=== PATIENT | female | born 1945 | race Caucasian/White ===

== ENCOUNTER 2018-12-01 11:17 | Inpatient (IN) | payer MEDICARE, MEDICAID ==
[~2018-12-01] VITALS: Ht 157.5 cm; Wt 82.8 kg
[2018-12-01] MEDS ORDERED: SODIUM CHLORIDE 0.9% 1,000 ML IV ONE (12:00)
[2018-12-01] MEDS ORDERED: ONDANSETRON HCL 4MG/2ML INJ IV STA (12:00)
[2018-12-01] MEDS ORDERED: FAMOTIDINE 20MG/2ML VIAL IV STA (12:00)
[2018-12-01] MEDS ORDERED: MORPHINE SULFATE 4 MG/ML CPJ (NOT FOR IM USE) IV STA (12:00)
[2018-12-01 12:16] LABS: EOSINOPHILS % 2.4 % (0.0-5.0); HEMATOCRIT. 43.3 % (36.0-48.0); HEMOGLOBIN. 14.5 g/dL (12.0-16.0); LYMPHOCYTES % 24.6 % (20.0-50.0); MEAN CORPUSCULAR HEMOGLOBIN 31.9 pg (28.0-32.0); MEAN CORPUSCULAR VOLUME 95.5 fL (81.0-99.0); MEAN PLATELET VOLUME 9.4 fl (7.4-10.4); MONOCYTES % 6.5 % (2.0-8.0); NEUTROPHILS % 65.5 % (40.0-76.0); PLATELET 212 x1000/uL (130-400); RED BLOOD CELL COUNT 4.54 mill/uL (4.2-5.4); RED CELL DISTRIBUTION WIDTH 13.7 % (11.6-14.6)
[2018-12-01 12:21] LABS: CHLORIDE 107 mEq/L (98-107)
[2018-12-01 12:23] LABS: INR 1.1
[2018-12-01 12:37] LABS: CLARITY URINE CLEAR (CLEAR); COLOR URINE YELLOW (YELLOW); KETONES URINE NEGATIVE (NEGATIVE); LEUKOCYTE ESTERASE URINE NEGATIVE (NEGATIVE); NITRITE URINE NEGATIVE (NEGATIVE); OCCULT BLOOD URINE NEGATIVE (NEGATIVE); PH URINE 6.5 (4.5-8.0); PROTEIN URINE NEGATIVE (NEGATIVE); SPECIFIC GRAVITY URINE 1.022 (1.005-1.030); UROBILINOGEN URINE 0.2 E.U./dL (0.2-1.0)
[2018-12-01] MEDS ORDERED: IOHEXOL-300 100 ML BOTTLE ONE (14:07)
[2018-12-01] MEDS ORDERED: IOHEXOL-350 100 ML BOTTLE ONE (14:11)
[2018-12-01] MEDS ORDERED: LORAZEPAM 1MG TABLET PO NR (16:00)
[2018-12-01] MEDS ORDERED: MORPHINE SULFATE 4 MG/ML CPJ (NOT FOR IM USE) IV ONE (17:00)
[2018-12-01] MEDS: SODIUM CHLORIDE 0.45% 1,000 ML IV SCH (20:29)
[2018-12-01] MEDS ORDERED: NA PHOS,M-B/NA PHOS,DI-BA ENEMA 118ML PR PRN (20:30)
[2018-12-01] MEDS ORDERED: CLONIDINE 0.1MG TABLET PO PRN (20:30)
[2018-12-01] MEDS ORDERED: MAGNESIUM/ALUMINUM HYDROXIDE/SIMETHICONE 30ML UDC PO PRN (20:30)
[2018-12-01] MEDS ORDERED: ACETAMINOPHEN 650MG/20.3ML UDC GT PRN (20:30)
[2018-12-01] MEDS ORDERED: GUAIFENESIN 200MG/10ML SUGAR FREE UDC PO PRN (20:30)
[2018-12-01] MEDS ORDERED: IPRATROPIUM/ALBUTEROL 0.5-3(2.5)MG/3ML NEB INH PRN (20:30)
[2018-12-01] MEDS ORDERED: DOCUSATE SODIUM 100MG CAPSULE PO PRN (20:30)
[2018-12-01] MEDS ORDERED: DIPHENHYDRAMINE 50MG/ML VIAL IV PRN (20:30)
[2018-12-01] MEDS ORDERED: ONDANSETRON HCL 4MG/2ML INJ IV PRN (20:30)
[2018-12-01] MEDS ORDERED: ACETAMINOPHEN 650MG SUPP PR PRN (20:30)
[2018-12-01] MEDS ORDERED: DEXTROSE 50% WATER 50ML SYRINGE IV PRN (20:45)
[2018-12-01 20:57] LABS: *AMPHETAMINES SCREEN URINE NEGATIVE (NEGATIVE); *BARBITURATES SCREEN URINE NEGATIVE (NEGATIVE)
[2018-12-01 20:58] LABS: *BENZODIAZEPINES SCREEN URINE NEGATIVE (NEGATIVE); *COCAINE SCREEN URINE NEGATIVE (NEGATIVE); CANNABINOID URINE SCREEN NEGATIVE (NEGATIVE); METHADONE URINE SCREEN NEGATIVE (NEGATIVE); OPIATES URINE SCREEN NEGATIVE (NEGATIVE); PHENCYCLIDINE URINE SCREEN NEGATIVE (NEGATIVE)
[2018-12-01 21:00] VITALS: BP_SYST 144; BP_SYST 147; BP_DIAS 77
[2018-12-01] MEDS: INSULIN LISPRO 100 UNITS/ML SUBCUT SCH (21:30)
[2018-12-01] MEDS: BLOOD SUGAR DIAGNOSTIC STRIP TEST SCH (22:09)
[2018-12-01] MEDS: SODIUM CHLORIDE 0.9% INJ 3ML FLUSH IVF SCH (22:10)
[2018-12-01] MEDS: LEVOFLOXACIN 500MG PREMIX 100 ML IV SCH (22:27)
[2018-12-01] MEDS: METRONIDAZOLE 500 MG PREMIX 100 ML IV SCH (22:27)
[2018-12-01] MEDS: ENOXAPARIN 30MG/0.3ML SYR SUBCUT SCH (22:45)
[2018-12-01] MEDS: MORPHINE SULFATE 4 MG/ML CPJ (NOT FOR IM USE) IV PRN (22:46)
[2018-12-02] VITALS: BP 143/73
[2018-12-02] MEDS: ZOLPIDEM TARTRATE 5MG TABLET PO PRN ×3 (00:46→21:06)
[2018-12-02 04:00] VITALS: BP 142/85
[2018-12-02] MEDS: SODIUM CHLORIDE 0.9% INJ 3ML FLUSH IVF SCH ×2 (05:42→13:56)
[2018-12-02] MEDS: BLOOD SUGAR DIAGNOSTIC STRIP TEST SCH ×4 (05:46→21:00)
[2018-12-02] MEDS: METRONIDAZOLE 500 MG PREMIX 100 ML IV SCH ×2 (05:46→13:55)
[2018-12-02 07:15] LABS: BASOPHILS % 1.4 % (0.0-2.0); EOSINOPHILS % 3.8 % (0.0-5.0); HEMATOCRIT. 40.1 % (36.0-48.0); HEMOGLOBIN. 13.6 g/dL (12.0-16.0); LYMPHOCYTES % 30.9 % (20.0-50.0); MEAN CORPUSCULAR HEMOGLOBIN 32.3 pg (28.0-32.0); MEAN CORPUSCULAR VOLUME 95.1 fL (81.0-99.0); MEAN PLATELET VOLUME 9.5 fl (7.4-10.4); NEUTROPHILS % 54.9 % (40.0-76.0); PLATELET 206 x1000/uL (130-400); RED BLOOD CELL COUNT 4.22 mill/uL (4.2-5.4); RED CELL DISTRIBUTION WIDTH 13.8 % (11.6-14.6)
[2018-12-02 07:47] LABS: CHLORIDE 104 mEq/L (98-107)
[2018-12-02] MEDS: INSULIN LISPRO 100 UNITS/ML SUBCUT SCH ×4 (07:50→21:00)
[2018-12-02 08:00] VITALS: BP 136/74
[2018-12-02 08:01] LABS: LDL CHOLESTEROL 88 mg/dL (5-100)
[2018-12-02 08:03] LABS: HDL CHOLESTEROL 38 mg/dL (40-59)
[2018-12-02] MEDS: SODIUM CHLORIDE 0.45% 1,000 ML IV SCH (08:59)
[2018-12-02] MEDS: ENOXAPARIN 30MG/0.3ML SYR SUBCUT SCH (09:46)
[2018-12-02] MEDS: HYDROCODONE/ACETAMINOPHEN 5/325MG TABLET PO PRN ×2 (09:47→18:22)
[2018-12-02 12:00] VITALS: BP 149/75
[2018-12-02] MEDS: MORPHINE SULFATE 4 MG/ML CPJ (NOT FOR IM USE) IV PRN (13:55)
[2018-12-02 16:00] VITALS: BP 144/93
[2018-12-02] MEDS ORDERED: DOCU-138 PO (18:47)
[2018-12-02] MEDS ORDERED: LACT10SO6 PO (18:48)
[2018-12-02] MEDS ORDERED: FENO43CA5 PO (18:49)
[2018-12-02] MEDS ORDERED: SIMV20TA2 PO (18:49)
[2018-12-02] MEDS ORDERED: ASA5EC PO (18:50)
[2018-12-02] MEDS ORDERED: CHOL100046 PO (18:51)
[2018-12-02] MEDS ORDERED: NALO25TA PO (18:52)
[2018-12-02] MEDS ORDERED: OLOP2.5D EACHEYE (18:52)
[2018-12-02] MEDS ORDERED: LINA5TAB PO (18:53)
[2018-12-02] MEDS ORDERED: LEVO100T9 PO (18:54)
[2018-12-02] MEDS ORDERED: POTA10CA42 PO (18:55)
[2018-12-02] MEDS ORDERED: FURO-152 PO (18:56)
[2018-12-02] MEDS ORDERED: GLUCO8 PO (18:57)
[2018-12-02] MEDS ORDERED: VALS160T28 PO (18:57)
[2018-12-02] MEDS ORDERED: METO-396 PO (18:58)
[2018-12-02] MEDS ORDERED: DULO60CA44 PO (18:59)
[2018-12-02] MEDS ORDERED: TEMA15CA PO (18:59)
[2018-12-02] MEDS ORDERED: LORA-250 PO (19:00)
[2018-12-02 19:53] VITALS: BP 133/53
[2018-12-02] MEDS: HYDROCODONE/ACETAMINOPHEN 10/325MG TABLET PO PRN (21:06)
[2018-12-02] MEDS: ACETAMINOPHEN 325MG TABLET PO PRN (21:06)
[2018-12-02] MEDS ORDERED: LACTULOSE 20G/30ML UDC PO SCH (22:00)
[2018-12-03] VITALS (7 sets, daily range): BP systolic 123–163; BP diastolic 64–92
[2018-12-03] MEDS: LEVOFLOXACIN 500MG PREMIX 100 ML IV SCH (04:18)
[2018-12-03] MEDS: METRONIDAZOLE 500 MG PREMIX 100 ML IV SCH ×4 (04:19→21:54)
[2018-12-03] MEDS: SODIUM CHLORIDE 0.45% 1,000 ML IV SCH ×3 (04:20→22:08)
[2018-12-03] MEDS: SODIUM CHLORIDE 0.9% INJ 3ML FLUSH IVF SCH ×4 (04:21→22:05)
[2018-12-03] MEDS: HYDROCODONE/ACETAMINOPHEN 10/325MG TABLET PO PRN ×4 (04:22→21:53)
[2018-12-03] MEDS: BLOOD SUGAR DIAGNOSTIC STRIP TEST SCH ×4 (06:02→21:54)
[2018-12-03] MEDS: INSULIN LISPRO 100 UNITS/ML SUBCUT SCH ×4 (06:02→21:00)
[2018-12-03] MEDS: ENOXAPARIN 40MG/0.4ML SYR SUBCUT SCH ×2 (09:11→21:53)
[2018-12-03] MEDS: HYDROCODONE/ACETAMINOPHEN 5/325MG TABLET PO PRN (09:12)
[2018-12-03] MEDS: ACETAMINOPHEN 325MG TABLET PO PRN (11:54)
[2018-12-03] MEDS ORDERED: SUMATRIPTAN SUCCINATE 6MG/0.5ML VIAL SUBCUT SCH (13:00)
[2018-12-03 17:19] LABS: EOSINOPHILS % 3.4 % (0.0-5.0); HEMATOCRIT. 42.6 % (36.0-48.0); HEMOGLOBIN. 14.4 g/dL (12.0-16.0); LYMPHOCYTES % 30.1 % (20.0-50.0); MEAN CORPUSCULAR HEMOGLOBIN 32.4 pg (28.0-32.0); MEAN CORPUSCULAR VOLUME 95.5 fL (81.0-99.0); NEUTROPHILS % 58.5 % (40.0-76.0); PLATELET 205 x1000/uL (130-400); RED BLOOD CELL COUNT 4.46 mill/uL (4.2-5.4); RED CELL DISTRIBUTION WIDTH 13.6 % (11.6-14.6)
[2018-12-03 17:40] LABS: CHLORIDE 105 mEq/L (98-107)
[2018-12-03] MEDS: ZOLPIDEM TARTRATE 5MG TABLET PO PRN (21:52)
[2018-12-04] MEDS ORDERED: LEVOFLOXACIN 500MG PREMIX 100 ML IV SCH (02:00)
[2018-12-04 03:58] VITALS: BP 181/83
[2018-12-04] MEDS: BLOOD SUGAR DIAGNOSTIC STRIP TEST SCH ×2 (06:07→12:14)
[2018-12-04] MEDS: SODIUM CHLORIDE 0.9% INJ 3ML FLUSH IVF SCH (06:07)
[2018-12-04] MEDS: METRONIDAZOLE 500 MG PREMIX 100 ML IV SCH ×2 (06:08→13:14)
[2018-12-04] MEDS: HYDROCODONE/ACETAMINOPHEN 10/325MG TABLET PO PRN ×2 (07:58→12:17)
[2018-12-04 08:00] VITALS: BP 167/88
[2018-12-04] MEDS ORDERED: METR500T MT (08:00)
[2018-12-04] MEDS ORDERED: LEVO500T2 MT (08:00)
[2018-12-04] MEDS: INSULIN LISPRO 100 UNITS/ML SUBCUT SCH ×2 (08:16→13:19)
[2018-12-04] MEDS: ACETAMINOPHEN 325MG TABLET PO PRN (10:08)
[2018-12-04 12:00] VITALS: BP 148/67
[2018-12-04 12:29] VITALS: BP 148/67
== END 2018-12-04 14:40 | DRG 392 ==
LOC: ER 11:17 → 6WST 15:48 → EDBEDREQ 15:52 → ENRESERV 19:49 → 6WST 12-03 21:55
PROVIDERS: ADMIT Family Medicine; ATTEND Family Medicine
DX: K52.9 Noninfective gastroenteritis and colitis, unspecified (principal); J44.9 Chronic obstructive pulmonary disease, unspecified; E03.9 Hypothyroidism, unspecified; E11.9 Type 2 diabetes mellitus without complications; E66.9 Obesity, unspecified; M54.9 Dorsalgia, unspecified; E78.00 Pure hypercholesterolemia, unspecified; E78.5 Hyperlipidemia, unspecified; F41.9 Anxiety disorder, unspecified; G43.909 Migraine, unspecified, not intractable, without status migrainosus; G89.29 Other chronic pain; I10 Essential (primary) hypertension; M19.90 Unspecified osteoarthritis, unspecified site; Z68.33 Body mass index [BMI] 33.0-33.9, adult
CPT/HCPCS: 36415; 71045; 74177; 76705; 80061; 80305; 82962; 83605; 84484; 93005; 96374; 96375; 99285; J1200; J1650; J1815; J1956; J2270; J2405; J3030; J3490; J7030; Q9967

== ENCOUNTER 2019-12-02 20:33 | Inpatient (IN) | payer MEDICARE, MEDICAID ==
[~2019-12-02] VITALS: Ht 160 cm; Wt 87.7 kg
[~2019-12-02 20:33] MED LIST: ASPI325T85 PO; CHOL100046 PO; DOCU-138 PO; DULO60CA44 PO; FENO43CA8 PO; FURO-152 PO; GLUCO8 PO; LACT10SO6 PO; LEVO100T9 PO; LEVO500T2 MT; LINA5TAB PO; LORA-250 PO; METO-396 PO; METR500T MT; NALO25TA PO; OLOP2.5D EACHEYE; POTA10CA42 PO; SIMV20TA2 PO; TEMA15CA PO; VALS160T28 PO
[2019-12-02] MEDS ORDERED: SODIUM CHLORIDE 0.9% 1,000 ML IV ONE (21:01)
[2019-12-02] MEDS ORDERED: ACETAMINOPHEN 325MG TABLET PO STA (21:01)
[2019-12-02 21:51] LABS: CLARITY URINE CLEAR (CLEAR); COLOR URINE YELLOW (YELLOW); KETONES URINE NEGATIVE (NEGATIVE); LEUKOCYTE ESTERASE URINE NEGATIVE (NEGATIVE); NITRITE URINE NEGATIVE (NEGATIVE); OCCULT BLOOD URINE 2+ (NEGATIVE); PROTEIN URINE 2+ (NEGATIVE); SPECIFIC GRAVITY URINE 1.017 (1.005-1.030)
[2019-12-02 21:53] LABS: BASOPHILS % 0.7 % (0.0-2.0); HEMOGLOBIN. 15.2 g/dL (12.0-16.0); LYMPHOCYTES % 26.2 % (20.0-50.0); MEAN CORPUSCULAR HEMOGLOBIN 29.9 pg (28.0-32.0); MEAN CORPUSCULAR VOLUME 88.5 fL (81.0-99.0); MONOCYTES % 9.5 % (2.0-8.0); NEUTROPHILS % 63.6 % (40.0-76.0); PLATELET 139 x1000/uL (130-400); RED BLOOD CELL COUNT 5.09 mill/uL (4.2-5.4); RED CELL DISTRIBUTION WIDTH 14.5 % (11.6-14.6)
[2019-12-02 22:02] LABS: INR 1.1; PROTHROMBIN TIME 11.6 sec (9.6-11.0)
[2019-12-02 22:10] LABS: CHLORIDE 103 mEq/L (98-107)
[2019-12-02] MEDS ORDERED: ALBUTEROL 6.7GM HFA INHALER ORI ONE (22:45)
[2019-12-02] MEDS ORDERED: DEXAMETHASONE 4MG/ML 1ML VIAL IV ONE (22:45)
[2019-12-02] MEDS ORDERED: AZITHROMYCIN 500 MG in DEXT 5% WATER 250 ML IV SCH (22:45)
[2019-12-02] MEDS ORDERED: KCL 20MEQ/100ML PREMIX 100 ML IV ONE (23:15)
[2019-12-02] MEDS ORDERED: POTASSIUM CHLORIDE 20MEQ/PACKET PO ONE (23:15)
[2019-12-03] VITALS (7 sets, daily range): BP systolic 112–154; BP diastolic 62–78
[2019-12-03] MEDS ORDERED: ONDANSETRON HCL 4MG/2ML INJ IV PRN (04:00)
[2019-12-03] MEDS ORDERED: DEXTROSE 50% WATER 50ML SYRINGE IV PRN (04:00)
[2019-12-03] MEDS ORDERED: CLONIDINE 0.1MG TABLET PO PRN (04:00)
[2019-12-03] MEDS: ACETAMINOPHEN 325MG TABLET PO PRN ×2 (04:38→13:17)
[2019-12-03] MEDS: METRONIDAZOLE 500MG TABLET PO SCH ×3 (06:30→22:31)
[2019-12-03] MEDS: BLOOD SUGAR DIAGNOSTIC STRIP TEST SCH ×4 (06:35→21:13)
[2019-12-03 08:37] LABS: CHLORIDE 108 mEq/L (98-107)
[2019-12-03 08:38] LABS: BASOPHILS % 0.1 % (0.0-2.0); HEMATOCRIT. 42.4 % (36.0-48.0); HEMOGLOBIN. 14.2 g/dL (12.0-16.0); LYMPHOCYTES % 17.7 % (20.0-50.0); MEAN CORPUSCULAR HEMOGLOBIN 29.9 pg (28.0-32.0); MEAN CORPUSCULAR VOLUME 88.9 fL (81.0-99.0); MEAN PLATELET VOLUME 10.5 fl (7.4-10.4); MONOCYTES % 3.7 % (2.0-8.0); NEUTROPHILS % 78.5 % (40.0-76.0); PLATELET 127 x1000/uL (130-400); RED BLOOD CELL COUNT 4.77 mill/uL (4.2-5.4); RED CELL DISTRIBUTION WIDTH 15.1 % (11.6-14.6)
[2019-12-03] MEDS: LEVOFLOXACIN 500MG TABLET PO SCH (08:50)
[2019-12-03] MEDS: ERGOCALCIFEROL 50000UNITS CAPSULE PO SCH (08:50)
[2019-12-03] MEDS: DOCUSATE SODIUM 100MG CAPSULE PO SCH ×2 (08:50→16:16)
[2019-12-03] MEDS: ASPIRIN 81MG TABLET PO SCH (08:51)
[2019-12-03] MEDS: INSULIN LISPRO 100 UNITS/ML SUBCUT SCH ×4 (08:58→21:00)
[2019-12-03] MEDS ORDERED: LACTULOSE 20G/30ML UDC PO SCH (09:00)
[2019-12-03] MEDS ORDERED: MEDICATION NOT ON FORMULARY EA (Lactulose 30 GM) PO SCH (09:00)
[2019-12-03] MEDS: ENOXAPARIN 40MG/0.4ML SYR SUBCUT SCH (09:00)
[2019-12-03] MEDS: HYDROCODONE/ACETAMINOPHEN 5/325MG TABLET PO PRN (12:25)
[2019-12-03] MEDS ORDERED: POTASSIUM CHLORIDE 20MEQ TABLET SR PO SCH (14:45)
[2019-12-03] MEDS: ASCORBIC ACID 500 MG TABLET PO SCH (17:15)
[2019-12-03] MEDS: HYDROCODONE/ACETAMINOPHEN 10/325MG TABLET PO PRN (17:28)
[2019-12-03] MEDS: ZINC SULFATE 220 MG ( 50 ) CAPSULE PO SCH (17:29)
[2019-12-03] MEDS: METFORMIN HCL 850MG TABLET PO SCH (17:30)
[2019-12-03] MEDS: HYDROXYCHLOROQUINE SULFATE 200MG TABLET PO SCH (17:31)
[2019-12-03] MEDS: THIAMINE HCL 100MG TABLET PO SCH (17:31)
[2019-12-03] MEDS: LINAGLIPTIN 5MG TABLET PO SCH (17:32)
[2019-12-03] MEDS: LACTULOSE 20G/30ML UDC PO SCH (20:55)
[2019-12-03] MEDS: METOPROLOL TARTRATE 25MG TABLET PO SCH (20:56)
[2019-12-03] MEDS: FENOFIBRATE NANOCRYSTALLIZED 48MG TABLET PO SCH (20:57)
[2019-12-03] MEDS ORDERED: MEDICATION NOT ON FORMULARY EA (Simvastatin (Zocor) 20 MG) PO SCH (21:00)
[2019-12-03] MEDS: ATORVASTATIN CALCIUM 10MG TABLET PO SCH (22:33)
[2019-12-04] VITALS: BP 125/64
[2019-12-04] MEDS: AZITHROMYCIN 500 MG in DEXT 5% WATER 250 ML IV SCH ×2 (00:05→22:59)
[2019-12-04] MEDS: ACETAMINOPHEN 325MG TABLET PO PRN ×2 (00:05→13:06)
[2019-12-04] MEDS: HYDROCODONE/ACETAMINOPHEN 10/325MG TABLET PO PRN ×2 (01:51→23:59)
[2019-12-04 04:00] VITALS: BP 117/61
[2019-12-04] MEDS: METRONIDAZOLE 500MG TABLET PO SCH ×3 (06:18→21:19)
[2019-12-04] MEDS: LEVOTHYROXINE SODIUM 100MCG TABLET PO SCH (07:40)
[2019-12-04] MEDS: BLOOD SUGAR DIAGNOSTIC STRIP TEST SCH ×4 (07:40→21:19)
[2019-12-04 08:00] VITALS: BP 141/72
[2019-12-04] MEDS: METFORMIN HCL 850MG TABLET PO SCH ×2 (08:10→18:04)
[2019-12-04] MEDS: INSULIN LISPRO 100 UNITS/ML SUBCUT SCH ×4 (08:10→21:31)
[2019-12-04 08:57] LABS: BG BASE EXCESS -3.9 mmol/L (-2.0-2.0); BG CARBOXYHEMOGLOBIN 0.3 % (0.5-1.5); BG DEOXYHEMOGLOBIN 8.4 % (0.0-5.0); BG HCO3 ACT 17.7 mmol/L (22.0-26.0); BG METHEMOGLOBIN 0.3 % (0.0-1.5); BG OXYGEN SATURATION 91.5 % (92.0-98.5); BG PCO2 24.6 mmHg (35.0-45.0); BG PH 7.474 (7.350-7.450); BG PO2 56.9 mmHg (75.0-100.0); BG SAMPLE SITE RIGHT RADIAL; BG TOTAL HEMOGLOBIN 15.1 g/dL (12.0-18.0); BG VENT MODE MASK - NRB
[2019-12-04] MEDS: FUROSEMIDE 20MG TABLET PO SCH (09:00)
[2019-12-04] MEDS: ASCORBIC ACID 500 MG TABLET PO SCH ×2 (09:00→17:15)
[2019-12-04] MEDS: LEVOFLOXACIN 500MG TABLET PO SCH (09:00)
[2019-12-04] MEDS: DULOXETINE HCL 60MG DR CAPSULE PO SCH (09:00)
[2019-12-04] MEDS: ASPIRIN 81MG TABLET PO SCH (09:00)
[2019-12-04] MEDS: THIAMINE HCL 100MG TABLET PO SCH ×2 (09:00→17:16)
[2019-12-04] MEDS: ZINC SULFATE 220 MG ( 50 ) CAPSULE PO SCH (09:00)
[2019-12-04] MEDS: DOCUSATE SODIUM 100MG CAPSULE PO SCH ×2 (09:00→17:16)
[2019-12-04] MEDS: METOPROLOL TARTRATE 25MG TABLET PO SCH ×2 (09:00→21:19)
[2019-12-04] MEDS: HYDROXYCHLOROQUINE SULFATE 200MG TABLET PO SCH ×2 (09:00→17:16)
[2019-12-04] MEDS: LINAGLIPTIN 5MG TABLET PO SCH (09:00)
[2019-12-04 10:52] LABS: BG BASE EXCESS -2.4 mmol/L (-2.0-2.0); BG CARBOXYHEMOGLOBIN 0.3 % (0.5-1.5); BG FRACTION INSPIRED OXYGEN 100; BG METHEMOGLOBIN 0.5 % (0.0-1.5); BG OXYGEN SATURATION 92.9 % (92.0-98.5); BG OXYHEMOGLOBIN 92.2 % (94.0-97.0); BG PCO2 25.5 mmHg (35.0-45.0); BG PH 7.491 (7.350-7.450); BG PO2 60.3 mmHg (75.0-100.0); BG SAMPLE SITE RIGHT RADIAL; BG TOTAL HEMOGLOBIN 15.3 g/dL (12.0-18.0); BG VENT MODE MASK - NRB
[2019-12-04] MEDS: METHYLPREDNISOLONE SOD SUCC 40 MG/ML VIAL IV SCH ×2 (11:00→17:18)
[2019-12-04 12:00] VITALS: BP 152/75
[2019-12-04] MEDS: ENOXAPARIN 40MG/0.4ML SYR SUBCUT SCH (13:07)
[2019-12-04 14:09] LABS: BG BASE EXCESS -2.8 mmol/L (-2.0-2.0); BG CARBOXYHEMOGLOBIN 0.3 % (0.5-1.5); BG DEOXYHEMOGLOBIN 5.6 % (0.0-5.0); BG FRACTION INSPIRED OXYGEN 100; BG METHEMOGLOBIN 0.3 % (0.0-1.5); BG OXYGEN SATURATION 94.4 % (92.0-98.5); BG OXYHEMOGLOBIN 93.8 % (94.0-97.0); BG PCO2 26.3 mmHg (35.0-45.0); BG PH 7.476 (7.350-7.450); BG PO2 67.7 mmHg (75.0-100.0); BG SAMPLE SITE RIGHT RADIAL; BG TOTAL HEMOGLOBIN 15.4 g/dL (12.0-18.0); BG VENT MODE MASK - NRB
[2019-12-04 16:00] VITALS: BP 113/59
[2019-12-04 16:04] LABS: BASOPHILS % 0.2 % (0.0-2.0); HEMATOCRIT. 43.8 % (36.0-48.0); HEMOGLOBIN. 14.8 g/dL (12.0-16.0); LYMPHOCYTES % 8.8 % (20.0-50.0); MEAN CORPUSCULAR HEMOGLOBIN 29.7 pg (28.0-32.0); MEAN CORPUSCULAR VOLUME 87.9 fL (81.0-99.0); MEAN PLATELET VOLUME 10.5 fl (7.4-10.4); MONOCYTES % 4.8 % (2.0-8.0); NEUTROPHILS % 86.2 % (40.0-76.0); PLATELET 181 x1000/uL (130-400); RED BLOOD CELL COUNT 4.98 mill/uL (4.2-5.4); RED CELL DISTRIBUTION WIDTH 14.9 % (11.6-14.6)
[2019-12-04 16:05] LABS: CHLORIDE 108 mEq/L (98-107)
[2019-12-04] MEDS ORDERED: POTASSIUM CHLORIDE 20MEQ/PACKET PO NR (17:15)
[2019-12-04 20:00] VITALS: BP 129/81
[2019-12-04] MEDS: LACTULOSE 20G/30ML UDC PO SCH (21:18)
[2019-12-04] MEDS: FENOFIBRATE NANOCRYSTALLIZED 48MG TABLET PO SCH (21:18)
[2019-12-04] MEDS: ATORVASTATIN CALCIUM 10MG TABLET PO SCH (21:18)
[2019-12-05] VITALS: BP 128/74
[2019-12-05 04:00] VITALS: BP 118/58
[2019-12-05] MEDS: METRONIDAZOLE 500MG TABLET PO SCH ×3 (05:37→21:34)
[2019-12-05] MEDS: BLOOD SUGAR DIAGNOSTIC STRIP TEST SCH ×4 (07:29→21:31)
[2019-12-05] MEDS: LEVOFLOXACIN 500MG TABLET PO SCH (09:00)
[2019-12-05] MEDS: DOCUSATE SODIUM 100MG CAPSULE PO SCH ×2 (09:00→16:58)
[2019-12-05 09:25] LABS: BASOPHILS % 0.1 % (0.0-2.0); HEMOGLOBIN. 14.9 g/dL (12.0-16.0); LYMPHOCYTES % 10.9 % (20.0-50.0); MEAN CORPUSCULAR VOLUME 88.7 fL (81.0-99.0); MEAN PLATELET VOLUME 10.4 fl (7.4-10.4); MONOCYTES % 7.5 % (2.0-8.0); NEUTROPHILS % 81.5 % (40.0-76.0); PLATELET 196 x1000/uL (130-400); RED BLOOD CELL COUNT 4.97 mill/uL (4.2-5.4); RED CELL DISTRIBUTION WIDTH 15.2 % (11.6-14.6)
[2019-12-05] MEDS: ASCORBIC ACID 500 MG TABLET PO SCH ×2 (09:32→16:57)
[2019-12-05] MEDS: METOPROLOL TARTRATE 25MG TABLET PO SCH ×2 (09:37→21:34)
[2019-12-05] MEDS: LINAGLIPTIN 5MG TABLET PO SCH (09:38)
[2019-12-05] MEDS: HYDROCODONE/ACETAMINOPHEN 10/325MG TABLET PO PRN (09:38)
[2019-12-05] MEDS: METHYLPREDNISOLONE SOD SUCC 40 MG/ML VIAL IV SCH ×2 (09:39→16:58)
[2019-12-05] MEDS: METFORMIN HCL 850MG TABLET PO SCH ×2 (09:39→16:57)
[2019-12-05] MEDS: LEVOTHYROXINE SODIUM 100MCG TABLET PO SCH (09:39)
[2019-12-05] MEDS: FUROSEMIDE 20MG TABLET PO SCH (09:39)
[2019-12-05] MEDS: ZINC SULFATE 220 MG ( 50 ) CAPSULE PO SCH (09:39)
[2019-12-05] MEDS: THIAMINE HCL 100MG TABLET PO SCH ×2 (09:39→16:57)
[2019-12-05] MEDS: HYDROXYCHLOROQUINE SULFATE 200MG TABLET PO SCH ×2 (09:39→16:57)
[2019-12-05] MEDS: DULOXETINE HCL 60MG DR CAPSULE PO SCH (09:40)
[2019-12-05] MEDS: ASPIRIN 81MG TABLET PO SCH (09:40)
[2019-12-05] MEDS: ENOXAPARIN 40MG/0.4ML SYR SUBCUT SCH (09:41)
[2019-12-05 09:43] LABS: CHLORIDE 111 mEq/L (98-107)
[2019-12-05] MEDS: INSULIN LISPRO 100 UNITS/ML SUBCUT SCH ×4 (09:43→21:31)
[2019-12-05] MEDS ORDERED: BENZONATATE 100MG CAPSULE PO PRN (10:45)
[2019-12-05 10:56] LABS: BG BASE EXCESS -1.9 mmol/L (-2.0-2.0); BG CARBOXYHEMOGLOBIN 0.3 % (0.5-1.5); BG DEOXYHEMOGLOBIN 12.5 % (0.0-5.0); BG FRACTION INSPIRED OXYGEN 100; BG HCO3 ACT 21.2 mmol/L (22.0-26.0); BG METHEMOGLOBIN 0.4 % (0.0-1.5); BG OXYGEN SATURATION 87.4 % (92.0-98.5); BG OXYHEMOGLOBIN 86.8 % (94.0-97.0); BG PCO2 31.5 mmHg (35.0-45.0); BG PH 7.445 (7.350-7.450); BG PO2 51.4 mmHg (75.0-100.0); BG SAMPLE SITE LEFT RADIAL; BG TOTAL HEMOGLOBIN 14.9 g/dL (12.0-18.0); BG VENT MODE MASK - NRB
[2019-12-05] MEDS ORDERED: CEFTRIAXONE 1 G PREMIX 50 ML IV SCH (11:15)
[2019-12-05 12:00] VITALS: BP 122/68
[2019-12-05] MEDS: ACETAMINOPHEN 325MG TABLET PO PRN ×2 (14:27→20:29)
[2019-12-05] MEDS: DEXT 5%/0.45% NACL 1000ML 1,000 ML IV SCH (14:28)
[2019-12-05] MEDS: CEFTRIAXONE 1,000 MG in DEXTROSE 5% WATER 50 ML IV SCH (14:29)
[2019-12-05 16:00] VITALS: BP 92/56
[2019-12-05] MEDS: HYDROCODONE/ACETAMINOPHEN 5/325MG TABLET PO PRN ×2 (16:53→21:49)
[2019-12-05 20:00] VITALS: BP 110/56
[2019-12-05] MEDS: LACTULOSE 20G/30ML UDC PO SCH (21:33)
[2019-12-05] MEDS: FENOFIBRATE NANOCRYSTALLIZED 48MG TABLET PO SCH (21:34)
[2019-12-05] MEDS: ATORVASTATIN CALCIUM 10MG TABLET PO SCH (21:34)
[2019-12-05] MEDS: AZITHROMYCIN 500 MG in DEXT 5% WATER 250 ML IV SCH (21:36)
[2019-12-06] VITALS: BP 98/58
[2019-12-06] MEDS: HYDROCODONE/ACETAMINOPHEN 10/325MG TABLET PO PRN (01:38)
[2019-12-06 04:00] VITALS: BP 98/62
[2019-12-06] MEDS: METRONIDAZOLE 500MG TABLET PO SCH ×3 (05:19→22:00)
[2019-12-06] MEDS: BLOOD SUGAR DIAGNOSTIC STRIP TEST SCH ×4 (05:22→21:00)
[2019-12-06] MEDS: LEVOTHYROXINE SODIUM 100MCG TABLET PO SCH (07:40)
[2019-12-06 08:00] VITALS: BP 104/82
[2019-12-06] MEDS: INSULIN LISPRO 100 UNITS/ML SUBCUT SCH ×4 (08:10→21:00)
[2019-12-06] MEDS: METFORMIN HCL 850MG TABLET PO SCH ×2 (08:10→18:10)
[2019-12-06] MEDS: ASCORBIC ACID 500 MG TABLET PO SCH ×2 (09:00→17:00)
[2019-12-06] MEDS: HYDROXYCHLOROQUINE SULFATE 200MG TABLET PO SCH ×2 (09:00→17:00)
[2019-12-06] MEDS: DOCUSATE SODIUM 100MG CAPSULE PO SCH ×2 (09:00→17:00)
[2019-12-06] MEDS: THIAMINE HCL 100MG TABLET PO SCH ×2 (09:00→17:00)
[2019-12-06] MEDS: ZINC SULFATE 220 MG ( 50 ) CAPSULE PO SCH (09:00)
[2019-12-06] MEDS: DULOXETINE HCL 60MG DR CAPSULE PO SCH (09:00)
[2019-12-06] MEDS: METOPROLOL TARTRATE 25MG TABLET PO SCH ×2 (09:00→21:00)
[2019-12-06] MEDS: ENOXAPARIN 40MG/0.4ML SYR SUBCUT SCH (09:00)
[2019-12-06] MEDS: ASPIRIN 81MG TABLET PO SCH (09:00)
[2019-12-06] MEDS: METHYLPREDNISOLONE SOD SUCC 40 MG/ML VIAL IV SCH (09:00)
[2019-12-06] MEDS: LINAGLIPTIN 5MG TABLET PO SCH (09:00)
[2019-12-06] MEDS: LEVOFLOXACIN 500MG TABLET PO SCH (09:00)
[2019-12-06] MEDS: MORPHINE SULFATE 4 MG/ML CPJ (NOT FOR IM USE) IV PRN ×3 (09:58→23:13)
[2019-12-06 12:00] VITALS: BP 140/59
[2019-12-06] MEDS: CEFTRIAXONE 1,000 MG in DEXTROSE 5% WATER 50 ML IV SCH (13:00)
[2019-12-06 16:00] VITALS: BP 130/82
[2019-12-06 20:00] VITALS: BP 138/71
[2019-12-06] MEDS: AZITHROMYCIN 250 MG TABLET PO SCH (21:00)
[2019-12-06] MEDS: FENOFIBRATE NANOCRYSTALLIZED 48MG TABLET PO SCH (21:00)
[2019-12-06] MEDS: ATORVASTATIN CALCIUM 10MG TABLET PO SCH (21:00)
[2019-12-06] MEDS: LACTULOSE 20G/30ML UDC PO SCH (21:00)
[2019-12-07] VITALS: BP 159/69
[2019-12-07] MEDS: DEXT 5%/0.45% NACL 1000ML 1,000 ML IV SCH ×2 (03:40→23:15)
[2019-12-07 04:00] VITALS: BP 109/72
[2019-12-07] MEDS: METRONIDAZOLE 500MG TABLET PO SCH ×3 (05:46→20:57)
[2019-12-07] MEDS: BLOOD SUGAR DIAGNOSTIC STRIP TEST SCH ×5 (07:40→20:57)
[2019-12-07] MEDS: INSULIN LISPRO 100 UNITS/ML SUBCUT SCH ×4 (07:56→21:00)
[2019-12-07 08:00] VITALS: BP 165/91
[2019-12-07] MEDS: THIAMINE HCL 100MG TABLET PO SCH ×2 (09:00→18:42)
[2019-12-07] MEDS ORDERED: METHYLPREDNISOLONE SOD SUCC 40 MG/ML VIAL IV SCH (09:00)
[2019-12-07] MEDS: ZINC SULFATE 220 MG ( 50 ) CAPSULE PO SCH (10:22)
[2019-12-07] MEDS: DOCUSATE SODIUM 100MG CAPSULE PO SCH ×2 (10:23→18:41)
[2019-12-07] MEDS: HYDROXYCHLOROQUINE SULFATE 200MG TABLET PO SCH ×2 (10:23→18:42)
[2019-12-07] MEDS: LINAGLIPTIN 5MG TABLET PO SCH (10:23)
[2019-12-07] MEDS: METOPROLOL TARTRATE 25MG TABLET PO SCH ×2 (10:23→21:00)
[2019-12-07] MEDS: ASCORBIC ACID 500 MG TABLET PO SCH ×2 (10:23→18:41)
[2019-12-07] MEDS: LEVOFLOXACIN 500MG TABLET PO SCH (10:23)
[2019-12-07] MEDS: METFORMIN HCL 850MG TABLET PO SCH ×2 (10:24→18:10)
[2019-12-07] MEDS: ENOXAPARIN 40MG/0.4ML SYR SUBCUT SCH (10:24)
[2019-12-07] MEDS: DULOXETINE HCL 60MG DR CAPSULE PO SCH (10:24)
[2019-12-07] MEDS: ASPIRIN 81MG TABLET PO SCH (10:24)
[2019-12-07] MEDS: LEVOTHYROXINE SODIUM 100MCG TABLET PO SCH (10:24)
[2019-12-07 12:09] VITALS: BP 153/65
[2019-12-07] MEDS ORDERED: LORAZEPAM 2MG/ML CPJ IV PRN (12:15)
[2019-12-07] MEDS: ACETAMINOPHEN 325MG TABLET PO PRN (14:49)
[2019-12-07] MEDS: CEFTRIAXONE 1,000 MG in DEXTROSE 5% WATER 50 ML IV SCH (14:49)
[2019-12-07] MEDS: MORPHINE SULFATE 2 MG/ML CPJ (NOT FOR IM USE) IV PRN ×2 (14:51→14:58)
[2019-12-07 16:06] VITALS: BP 140/68
[2019-12-07 20:00] VITALS: BP 123/69
[2019-12-07] MEDS: LACTULOSE 20G/30ML UDC PO SCH (20:57)
[2019-12-07] MEDS: ATORVASTATIN CALCIUM 10MG TABLET PO SCH (20:57)
[2019-12-07] MEDS: FENOFIBRATE NANOCRYSTALLIZED 48MG TABLET PO SCH (20:57)
[2019-12-07] MEDS: AZITHROMYCIN 250 MG TABLET PO SCH (20:57)
[2019-12-08] VITALS (7 sets, daily range): BP systolic 112–161; BP diastolic 60–78
[2019-12-08] MEDS: HYDROCODONE/ACETAMINOPHEN 10/325MG TABLET PO PRN (00:23)
[2019-12-08] MEDS: METRONIDAZOLE 500MG TABLET PO SCH ×3 (05:57→20:41)
[2019-12-08] MEDS: BLOOD SUGAR DIAGNOSTIC STRIP TEST SCH ×3 (05:58→20:55)
[2019-12-08] MEDS: ENOXAPARIN 40MG/0.4ML SYR SUBCUT SCH (10:28)
[2019-12-08] MEDS: THIAMINE HCL 100MG TABLET PO SCH ×2 (10:28→18:47)
[2019-12-08] MEDS: ASCORBIC ACID 500 MG TABLET PO SCH ×2 (10:29→18:48)
[2019-12-08] MEDS: DULOXETINE HCL 60MG DR CAPSULE PO SCH (10:30)
[2019-12-08] MEDS: ZINC SULFATE 220 MG ( 50 ) CAPSULE PO SCH (10:31)
[2019-12-08] MEDS: ASPIRIN 81MG TABLET PO SCH (10:31)
[2019-12-08] MEDS: HYDROXYCHLOROQUINE SULFATE 200MG TABLET PO SCH (10:31)
[2019-12-08] MEDS: LINAGLIPTIN 5MG TABLET PO SCH (10:31)
[2019-12-08] MEDS: LEVOFLOXACIN 500MG TABLET PO SCH (10:31)
[2019-12-08] MEDS: DOCUSATE SODIUM 100MG CAPSULE PO SCH ×2 (10:32→18:48)
[2019-12-08] MEDS: METOPROLOL TARTRATE 25MG TABLET PO SCH ×2 (10:33→21:00)
[2019-12-08] MEDS: METFORMIN HCL 850MG TABLET PO SCH ×2 (10:34→18:48)
[2019-12-08] MEDS: INSULIN LISPRO 100 UNITS/ML SUBCUT SCH ×3 (10:36→20:55)
[2019-12-08] MEDS: LEVOTHYROXINE SODIUM 100MCG TABLET PO SCH (10:38)
[2019-12-08] MEDS: CEFTRIAXONE 1,000 MG in DEXTROSE 5% WATER 50 ML IV SCH ×2 (13:22→13:29)
[2019-12-08] MEDS: AZITHROMYCIN 250 MG TABLET PO SCH (20:41)
[2019-12-08] MEDS: DEXT 5%/0.45% NACL 1000ML 1,000 ML IV SCH (20:41)
[2019-12-08] MEDS: MORPHINE SULFATE 2 MG/ML CPJ (NOT FOR IM USE) IV PRN (20:55)
[2019-12-08] MEDS: ATORVASTATIN CALCIUM 10MG TABLET PO SCH (21:00)
[2019-12-08] MEDS: FENOFIBRATE NANOCRYSTALLIZED 48MG TABLET PO SCH (21:00)
[2019-12-08] MEDS: LACTULOSE 20G/30ML UDC PO SCH (21:00)
[2019-12-09 00:05] VITALS: BP 133/63
[2019-12-09] MEDS: MORPHINE SULFATE 2 MG/ML CPJ (NOT FOR IM USE) IV PRN ×2 (01:13→05:11)
[2019-12-09 04:00] VITALS: BP 144/59
[2019-12-09] MEDS: METRONIDAZOLE 500MG TABLET PO SCH ×3 (05:11→23:06)
[2019-12-09] MEDS: BLOOD SUGAR DIAGNOSTIC STRIP TEST SCH ×4 (05:18→21:00)
[2019-12-09 08:00] VITALS: BP 147/60
[2019-12-09] MEDS: LINAGLIPTIN 5MG TABLET PO SCH (08:29)
[2019-12-09] MEDS: LEVOFLOXACIN 500MG TABLET PO SCH (08:29)
[2019-12-09] MEDS: THIAMINE HCL 100MG TABLET PO SCH ×2 (08:29→17:49)
[2019-12-09] MEDS: ASCORBIC ACID 500 MG TABLET PO SCH ×2 (08:29→17:49)
[2019-12-09] MEDS: ZINC SULFATE 220 MG ( 50 ) CAPSULE PO SCH (08:29)
[2019-12-09] MEDS: METFORMIN HCL 850MG TABLET PO SCH ×2 (08:29→17:49)
[2019-12-09] MEDS: LEVOTHYROXINE SODIUM 100MCG TABLET PO SCH (08:30)
[2019-12-09] MEDS: DOCUSATE SODIUM 100MG CAPSULE PO SCH ×2 (08:30→17:49)
[2019-12-09] MEDS: METOPROLOL TARTRATE 25MG TABLET PO SCH ×2 (08:30→23:08)
[2019-12-09] MEDS: ENOXAPARIN 40MG/0.4ML SYR SUBCUT SCH (08:34)
[2019-12-09] MEDS: DULOXETINE HCL 60MG DR CAPSULE PO SCH (08:34)
[2019-12-09] MEDS: ASPIRIN 81MG TABLET PO SCH (08:34)
[2019-12-09] MEDS: INSULIN LISPRO 100 UNITS/ML SUBCUT SCH ×4 (08:59→23:38)
[2019-12-09] MEDS: ACETAMINOPHEN 325MG TABLET PO PRN ×2 (13:23→23:48)
[2019-12-09] MEDS: DEXT 5%/0.45% NACL 1000ML 1,000 ML IV SCH (14:18)
[2019-12-09 20:00] VITALS: BP 152/71
[2019-12-09] MEDS: FENOFIBRATE NANOCRYSTALLIZED 48MG TABLET PO SCH (23:06)
[2019-12-09] MEDS: LACTULOSE 20G/30ML UDC PO SCH (23:08)
[2019-12-09] MEDS: ATORVASTATIN CALCIUM 10MG TABLET PO SCH (23:08)
[2019-12-10] VITALS: BP 124/76
[2019-12-10 04:00] VITALS: BP 148/57
[2019-12-10] MEDS: BLOOD SUGAR DIAGNOSTIC STRIP TEST SCH ×4 (06:45→20:57)
[2019-12-10] MEDS: METRONIDAZOLE 500MG TABLET PO SCH (06:45)
[2019-12-10] MEDS: LEVOTHYROXINE SODIUM 100MCG TABLET PO SCH (07:40)
[2019-12-10 08:00] VITALS: BP 117/72
[2019-12-10] MEDS: INSULIN LISPRO 100 UNITS/ML SUBCUT SCH ×4 (08:10→23:48)
[2019-12-10] MEDS: METFORMIN HCL 850MG TABLET PO SCH (08:10)
[2019-12-10] MEDS: ASPIRIN 81MG TABLET PO SCH (09:00)
[2019-12-10] MEDS: ENOXAPARIN 40MG/0.4ML SYR SUBCUT SCH (09:00)
[2019-12-10] MEDS: METOPROLOL TARTRATE 25MG TABLET PO SCH ×2 (09:00→21:00)
[2019-12-10] MEDS: THIAMINE HCL 100MG TABLET PO SCH (09:00)
[2019-12-10] MEDS: ERGOCALCIFEROL 50000UNITS CAPSULE PO SCH (09:00)
[2019-12-10] MEDS: DOCUSATE SODIUM 100MG CAPSULE PO SCH (09:00)
[2019-12-10] MEDS: ASCORBIC ACID 500 MG TABLET PO SCH ×2 (09:00→17:00)
[2019-12-10] MEDS: LINAGLIPTIN 5MG TABLET PO SCH (09:00)
[2019-12-10] MEDS: ZINC SULFATE 220 MG ( 50 ) CAPSULE PO SCH (09:00)
[2019-12-10] MEDS: LEVOFLOXACIN 500MG TABLET PO SCH (09:00)
[2019-12-10] MEDS: DULOXETINE HCL 60MG DR CAPSULE PO SCH (09:00)
[2019-12-10] MEDS ORDERED: MORPHINE SULFATE 250 MG in DEXT 5% WATER 240 ML IV PRN (10:45)
[2019-12-10 12:00] VITALS: BP 158/77
[2019-12-10 16:00] VITALS: BP 120/63
[2019-12-10] MEDS: CEFTRIAXONE 1,000 MG in DEXTROSE 5% WATER 50 ML IV SCH (17:07)
[2019-12-10] MEDS: DEXT 5%/0.45% NACL 1000ML 1,000 ML IV SCH (17:07)
[2019-12-10 20:00] VITALS: BP_SYST 124; BP_SYST 146; BP_DIAS 54; BP_DIAS 69
[2019-12-10] MEDS: ATORVASTATIN CALCIUM 10MG TABLET PO SCH (21:00)
[2019-12-11] VITALS: BP 124/54
[2019-12-11 04:00] VITALS: BP 139/62
[2019-12-11] MEDS: DEXT 5%/0.45% NACL 1000ML 1,000 ML IV SCH (07:12)
[2019-12-11] MEDS: BLOOD SUGAR DIAGNOSTIC STRIP TEST SCH ×3 (07:12→17:20)
[2019-12-11] MEDS: LEVOTHYROXINE SODIUM 100MCG TABLET PO SCH (07:12)
[2019-12-11] MEDS: INSULIN LISPRO 100 UNITS/ML SUBCUT SCH ×3 (08:10→17:20)
[2019-12-11] MEDS: ASPIRIN 81MG TABLET PO SCH (09:00)
[2019-12-11] MEDS: ASCORBIC ACID 500 MG TABLET PO SCH ×2 (09:00→17:00)
[2019-12-11] MEDS: ENOXAPARIN 40MG/0.4ML SYR SUBCUT SCH (09:00)
[2019-12-11] MEDS: METOPROLOL TARTRATE 25MG TABLET PO SCH (09:00)
[2019-12-11] MEDS: LINAGLIPTIN 5MG TABLET PO SCH (09:00)
[2019-12-11 12:00] VITALS: BP 109/51
[2019-12-11 16:00] VITALS: BP 70/41
== END 2019-12-11 19:00 | disposition expired | DRG 871 ==
LOC: ER 20:33 → EDBEDREQTM 23:49 → EDBEDREQ 23:49 → ENRESERV 12-03 01:32 → EEVIPCON 12-03 03:02 → 7WST 12-03 03:02
PROVIDERS: ADMIT Internal Medicine Nephrology; ATTEND Internal Medicine Nephrology
DX: A41.89 Other specified sepsis (principal); U07.1 COVID-19; J96.01 Acute respiratory failure with hypoxia; J12.89 Other viral pneumonia; J44.0 Chronic obstructive pulmonary disease with (acute) lower respiratory infection; E03.9 Hypothyroidism, unspecified; E11.9 Type 2 diabetes mellitus without complications; E66.9 Obesity, unspecified; E78.5 Hyperlipidemia, unspecified; E87.6 Hypokalemia; F41.9 Anxiety disorder, unspecified; I11.0 Hypertensive heart disease with heart failure; I50.9 Heart failure, unspecified; K52.9 Noninfective gastroenteritis and colitis, unspecified; M19.90 Unspecified osteoarthritis, unspecified site; G89.29 Other chronic pain; Z66 Do not resuscitate; Z51.5 Encounter for palliative care; D72.810 Lymphocytopenia; E78.00 Pure hypercholesterolemia, unspecified; M54.9 Dorsalgia, unspecified; F32.9 Major depressive disorder, single episode, unspecified; Z68.34 Body mass index [BMI] 34.0-34.9, adult; Z79.899 Other long term (current) drug therapy; Z79.82 Long term (current) use of aspirin
CPT/HCPCS: 36415; 36600; 71045; 80048; 80053; 81003; 82375; 82728; 82805; 82962; 83036; 83605; 83615; 84145; 84484; 85025; 86140; 87635; 93005; 96374; 99285; J0456; J0696; J1100; J1650; J1815; J2060; J2270; J2405; J2920; J3480; J7030; J7060